=== PATIENT | male | born 1975 | race Caucasian/White ===

== ENCOUNTER → 2019-11-30 15:39 | Outpatient (CLI) | payer OTHER, SELFPAY ==
[2019-11-30 16:42] LABS: Add Manual Diff / Slide Review NO; Basophils Absolute Auto 100 /uL (0-100); Basophils Percent Auto 0.9 % (0-2); Eosinophils Absolute Auto 100 /uL (0-450); Eosinophils Percent Auto 1.6 % (2-4); Hematocrit 41.3 % (41-53); Hemoglobin 14.1 g/dL (13.5-17.5); Lymphocytes Absolute Auto 2200 /uL (1100-4500); Mean Corpuscular HGB Conc 34.2 % (30-36); Mean Corpuscular Hemoglobin 30.7 PG (26-34); Mean Corpuscular Volume 89.9 fL (80-100); Monocytes Absolute Auto 600 /uL (0-900); Monocytes Percent Auto 7.2 % (3-14); Neutrophils Absolute Auto 5100 /uL (1500-7000); Neutrophils Percent Auto 63.3 % (50-75); Platelet Count 308 X10^3/uL (150-400); Red Cell Distribution Width 13.7 % (11.6-14.8)
[2019-11-30 17:11] LABS: Alanine Aminotransferase 25 IU/L (<50); Albumin 4.7 g/dL (3.5-5.0); Albumin Globulin Ratio 1.7 (1.0-2.8); Alkaline Phosphatase 42 U/L (38-126); Aspartate Aminotransferase 28 IU/L (17-59); BUN Creatinine Ratio 21.1 (6-22); Bilirubin Total 0.6 mg/dL (0.2-1.3); Blood Urea Nitrogen 19 mg/dL (9-20); Calcium 10.1 mg/dL (8.4-10.2); Carbon Dioxide 27 mmol/L (22-32); Chloride 104 mmol/L (98-107); Cholesterol 170 mg/dL (140-199); Estimated Glomerular Filt Rate > 60.0 mL/min (>60); Globulin 2.8 g/dL (1.7-4.1); Glucose 79 mg/dL (70-100); HDL Cholesterol 45 mg/dL (40-60); HEMOLYSIS < 15 (0-50); LDL Cholesterol Calculated 95 mg/dL (<100); Potassium 4.3 mmol/L (3.4-5.1); Sodium 141 mmol/L (137-145); Total Protein 7.5 g/dL (6.3-8.2); Triglycerides 150 mg/dL (35-150)
[2019-11-30 18:30] LABS: TSH w/ Reflex to FT4 5.68 uIU/mL (0.47-4.68)
[2019-11-30 19:59] LABS: Free T4, Direct Thyroxine 0.96 ng/dL (0.78-2.19)
== END ==
PROVIDERS: Family Provider Family Medicine; PCP Family Medicine; Referring Provider Family Medicine; Visit Provider Family Medicine
DX: Z13.220 Encounter for screening for lipoid disorders (principal); E78.5 Hyperlipidemia, unspecified
CPT/HCPCS: 36415; 80053; 80061; 84439; 84443; 85025

== ENCOUNTER → 2020-11-19 15:46 | Outpatient (CLI) | payer OTHER, SELFPAY ==
[2020-11-19 17:18] LABS: TSH w/ Reflex to FT4 6.92 uIU/mL (0.47-4.68)
[2020-11-19 17:44] LABS: Free T4, Direct Thyroxine 0.92 ng/dL (0.78-2.19)
== END ==
PROVIDERS: Family Provider Family Medicine; PCP Family Medicine; Referring Provider Family Medicine; Visit Provider Family Medicine
DX: E03.9 Hypothyroidism, unspecified (principal)
CPT/HCPCS: 36415; 84439; 84443

== ENCOUNTER → 2024-01-28 13:43 | Outpatient (CLI) | payer OTHER, SELFPAY ==
[2024-01-28 15:27] LABS: Add Manual Diff / Slide Review NO; Basophils Absolute Auto 100 /uL (0-100); Basophils Percent Auto 1.1 % (0-2); Eosinophils Absolute Auto 100 /uL (0-450); Eosinophils Percent Auto 1.6 % (2-4); Hematocrit 45.4 % (41-53); Lymphocytes Absolute Auto 2200 /uL (1100-4500); Lymphocytes Percent Auto 30.5 % (25-40); Mean Corpuscular Hemoglobin 29.9 PG (26-34); Mean Corpuscular Volume 90.7 fL (80-100); Monocytes Absolute Auto 600 /uL (0-900); Monocytes Percent Auto 9.1 % (3-14); Neutrophils Absolute Auto 4100 /uL (1500-7000); Neutrophils Percent Auto 57.7 % (50-75); Platelet Count 312 X10^3/uL (150-400); Red Blood Cell Count 5.01 X10^6/uL (4.5-5.9); Red Cell Distribution Width 13.2 % (11.6-14.8); White Blood Cell Count 7.1 X10^3/uL (4.5-11.0)
[2024-01-28 19:20] LABS: Alanine Aminotransferase 26 IU/L (<50); Albumin 4.9 g/dL (3.5-5.0); Alkaline Phosphatase 47 U/L (38-126); Aspartate Aminotransferase 29 IU/L (17-59); BUN Creatinine Ratio 21.4 (6-22); Bilirubin Total 0.8 mg/dL (0.2-1.3); Blood Urea Nitrogen 22 mg/dL (9-20); Calcium 10.1 mg/dL (8.4-10.2); Carbon Dioxide 26 mmol/L (22-32); Chloride 106 mmol/L (98-107); Cholesterol 171 mg/dL (140-199); Estimated Glomerular Filt Rate > 60 mL/min (>60); Globulin 2.5 g/dL (1.7-4.1); Glucose 72 mg/dL (70-100); HDL Cholesterol 49 mg/dL (40-60); HEMOLYSIS < 15 (0-50); LDL Cholesterol Calculated 94 mg/dL (<100); Potassium 4.4 mmol/L (3.4-5.1); Sodium 139 mmol/L (137-145); Total Protein 7.4 g/dL (6.3-8.2); Triglycerides 140 mg/dL (35-150)
[2024-01-28 19:47] LABS: Prostate Specific Antigen 1.09 ng/mL (0.10-4.00)
== END ==
PROVIDERS: Family Provider Family Medicine; PCP Family Medicine; Referring Provider Family Medicine; Visit Provider Family Medicine
DX: Z00.00 Encounter for general adult medical examination without abnormal findings (principal); E78.5 Hyperlipidemia, unspecified
CPT/HCPCS: 36415; 80053; 80061; 84153; 85025

== ENCOUNTER 2024-04-26 06:41 | Day surgery (SDC) | payer OTHER, SELFPAY ==
[2024-04-19 07:59] VITALS: BMI 24.2
[2024-04-26] VITALS (7 sets, daily range): BP systolic 120–145; BP diastolic 74–94; PULSE 70–97; RESP 10–17; TEMP 36.1–36.2; O2SAT 93–99; BMI 25.0
[2024-04-26] MEDS: LACTATED RINGERS 1,000 ML 42 ML IV (07:10)
--- NOTE | 2024-04-26 07:35 | SUR.OPER ---
Supine on padded OR bed, head on pillow, pink pad in place, arms padded and tucked at sides, legs uncrossed, safety belt at thigh, tape over blanket over lower legs .
--- NOTE | 2024-04-26 07:42 | PM.HP.1 ---
History of Present Illness History of Present Illness Date Patient Seen: 04/26/24 Time Patient Seen: 07:43 Chief complaint: Right Laparoscopic Inguinal Hernia Repair Narrative: Carlos is a 49-year-old man with a symptomatic right inguinal hernia. See office note from February for details. No changes since then. [facility] Medical History (Updated 03/18/24 @ 18:51 by Marybeth Villanueva) Chicken pox Preventative health care Surgical History (Updated 03/18/24 @ 18:51 by Marybeth Villanueva) Anesthesia Status post appendectomy (~1983) Family History (Updated 03/18/24 @ 18:51 by Marybeth Villanueva) Mother No problems noted. Brother Hypertension Social History marital status: household members: spouse occupational status: employed Smoking Status: Never smoker alcohol intake: never substance use type: does not use Meds Home Medications and Allergies Home Medications Medication Instructions Recorded Confirmed Type No Known Home Medications 04/26/24 04/26/24 History Allergies Allergy/AdvReac Type Severity Reaction Status Date / Time No Known Drug Allergies Allergy Verified 04/26/24 06:50 Exam Vital Signs (past 8 hours): - 04/26/24 06:59 Temperature 97.0 F L Pulse Rate 70 Respiratory Rate 16 Blood Pressure 145/94 H Pulse Oximetry 99 Oxygen Delivery Method Room Air Oxygen Delivery Method Room Air Const General: healthy appearing Other: Reducible right inguinal hernia Assessment & Plan Assessment and plan (1) Right inguinal hernia: Status: None Plan We reviewed the risks and benefits of laparoscopic right inguinal hernia repair with mesh and he would like to proceed. Time-Based Coding :: [TOTAL MINUTES] spent with patient and on the chart (including review of chart, obtaining history, exam, reviewing outside data, placing orders, documenting exam and treatment plan, and counseling patient) on [DATE].
[2024-04-26] MEDS: CEFAZOLIN 2 GM/100 ML PREMIX 100 ML IV (07:55)
[2024-04-26] MEDS: ACETAMINOPHEN IV 1,000 MG/100 ML VIAL 400 MG IV (08:00)
[2024-04-26] MEDS: BUPIVACAINE 0.5% W/ EPI (PF) 30 ML VIAL INJ (08:36)
--- NOTE | 2024-04-26 09:50 | P.OP_ITS ---
Operative Date/Time/Diagnoses Date of procedure: 04/26/24 Time of procedure: 09:50 Pre-op diagnosis: Right inguinal hernia Post-op diagnosis: same Procedure & Clinicians Procedure: Laparoscopic right inguinal hernia repair with mesh Same procedure as scheduled: Yes Surgeon: Mich Landry Senior Strategy Manager: Dexter Ibarra Anesthesia Type: General Operative Notes Procedure in detail: The patient was given preoperative antibiotics. The patient was brought to the operating room, placed on the table in the supine position with the arms tucked and general anesthesia was induced. The abdomen was prepped and draped in the usual fashion. A time-out was performed. A 1 cm supraumbilical incision was created and dissection was carried down to the anterior sheath. The fascia was scored transversely with cautery. The inferior leaf of the fascia was grasped with a Suni clamp to elevate abdominal wall. There was a rather robust posterior sheath that could not be easily pierced with a clamp. We grasped posterior sheath between clamps and divided with Metzenbaum scissors. The Liz port was placed and the abdomen was insufflated to 15 mmHg. The camera was inserted, there was no evidence of any injury from the entry. There was an indirect right inguinal hernia. 5 mm ports were placed under direct vision in the mid left and mid right abdomen. The patient was positioned in steep Trendelenburg. We created right peritoneal flap. The peritoneum was dissected off the right cord structures. The sac was dissected out of the internal ring. A large right Bard mesh was brought in and placed over the defect with the medial edge against Anand's ligament. We then closed the peritoneal flap with a running 3-0 barbed suture. We took one last look around the abdomen and saw no other abnormalities. The suture was removed and accounted for. The 5 mm ports were removed under direct vision. The abdomen was desufflated. The Liz port was removed. Additional local was injected into the fascia and the fascial incision was closed with 2 interrupted 0 Vicryl sutures. The skin incisions were closed with 4 Monocryl, Steri-Strips and Band-Aids. Dexter MURRY provided assistance with exposure, retraction and closure of incisions. EBL: 10 mL Post-operative Condition: stable Disposition: PACU
== END 2024-04-26 10:26 | disposition home or self-care (01) ==
PROVIDERS: Family Provider Family Medicine; PCP Family Medicine; Referring Provider Surgery; Visit Provider Surgery
PROC: 0YQ54ZZ Repair Right Inguinal Region, Percutaneous Endoscopic Approach (ICD-10-PCS; CPT 49650; principal; 2024-04-26 07:45)
DX: K40.90 Unilateral inguinal hernia, without obstruction or gangrene, not specified as recurrent (principal)
CPT/HCPCS: 49650; J0136; J0330; J0690; J1170; J2250; J2405; J2704; J3010; J3490

== ENCOUNTER 2024-06-09 06:45 | Day surgery (SDC) | payer OTHER, SELFPAY ==
--- NOTE | 2024-06-09 | PATH_ITS ---
[facility] Accession Number: [id number] No. of containers..01 Tissue . 01 Material submitted: . colon - SIGMOID POLYP . 01 Diagnosis: SIGMOID POLYP: Tubular adenoma. [facility] 06/14/2024 1549 Local . 01 Electronically signed: . Kole Wagn MD, Pathologist NPI- [id number] . 01 Gross description: . SIGMOID POLYP: Received in formalin is 1 fragment(s) of marlow, soft tissue measuring 1.1 x 0.5 x 0.5 cm submitted entirely in 1 cassette(s) /MARIOLA 06/14/2024 1549 Local . 01 Pathologist provided ICD-10: D12.5 . 01 CPT . 595808 Specimen Comment: A courtesy copy of this report has been sent to [phone] Performed at: [address] [id number] MD Kole Wang MD Phone: [phone]
[2024-06-09 07:22] VITALS: BP 145/93; PULSE 79; RESP 17; TEMP 36.4; O2SAT 99
[2024-06-09] MEDS: LACTATED RINGERS 1,000 ML 42 ML IV (07:26)
--- NOTE | 2024-06-09 07:37 | P.HP_ITS ---
History of Present Illness History of Present Illness Date Patient Seen: 06/09/24 Time Patient Seen: 07:38 Chief complaint: Colonoscopy Narrative: Carlos is a 49-year-old man who is here for his first screening colonoscopy. No family history of colon cancer. [facility] Medical History Chicken pox Preventative health care Surgical History Anesthesia Status post appendectomy (~1983) Family History Mother No problems noted. Brother Hypertension Social History marital status: household members: spouse occupational status: employed Smoking Status: Never smoker alcohol intake: never substance use type: does not use Meds Home Medications and Allergies Allergies Allergy/AdvReac Type Severity Reaction Status Date / Time No Known Drug Allergies Allergy Verified 06/09/24 07:12 Exam Vital Signs (past 8 hours): - 06/09/24 07:22 Temperature 97.5 F L Pulse Rate 79 Respiratory Rate 17 Blood Pressure 145/93 H Pulse Oximetry 99 Oxygen Delivery Method Room Air Oxygen Delivery Method Room Air Const General: healthy appearing Resp Effort & Inspection: normal respiratory effort Assessment & Plan Assessment and plan (1) Colon cancer screening: Status: Acute Plan We reviewed the risks and benefits of colonoscopy for colon cancer screening and he would like to proceed. Time-Based Coding :: [TOTAL MINUTES] spent with patient and on the chart (including review of chart, obtaining history, exam, reviewing outside data, placing orders, documenting exam and treatment plan, and counseling patient) on [DATE].
[2024-06-09 08:02] VITALS: BP 107/74; PULSE 76; RESP 16; TEMP 36.1; O2SAT 96
--- NOTE | 2024-06-09 08:04 | PM.OP.COLON ---
Operative Date/Time/Diagnoses Date of procedure: 06/09/24 Time of procedure: 08:05 Pre-op diagnosis: Colon cancer screening Post-op diagnosis: same Procedure & Clinicians Study performed: Colonoscopy Same procedure as scheduled: Yes Surgeon: Mich Landry Procedure Notes Procedure in detail: Surgeon: Mcih Landry MD Anesthesia: Amy Boudreaux CRNA Procedure: The patient was brought to the endoscopy suite, placed in left lateral decubitus position. The patient was connected to monitoring devices. A time-out was performed. Sedation was administered. Once the patient was adequately sedated, a digital rectal exam was performed and was normal. The scope was then inserted and advanced to the cecum where the appendiceal orifice was identified and photographed. The scope was then slowly withdrawn over greater than 6 minutes. The mucosa was thoroughly inspected. There was a 7 mm polyp in the distal sigmoid colon which was removed with a cold snare. The scope was retroflexed in the rectum. No other abnormalities were seen. The scope was straightened and removed. The patient was awakened and brought to recovery. Scope withdrawal time: 10 minutes Sedation time: 14 minutes EBL: 5 mL Findings: 7 mm sigmoid polyp Post-procedure Disposition: PACU
[2024-06-09 08:07] VITALS: BP 106/72; PULSE 68; RESP 16; O2SAT 96
[2024-06-09 08:12] VITALS: BP 104/70; PULSE 62; RESP 16; O2SAT 96
[2024-06-09 08:18] VITALS: BP 115/77; PULSE 63; RESP 12; TEMP 36.1; O2SAT 99
[2024-06-09 08:21] VITALS: BP 108/73; PULSE 65; RESP 11; O2SAT 99
== END 2024-06-09 08:57 | disposition home or self-care (01) ==
PROVIDERS: Family Provider Family Medicine; PCP Family Medicine; Referring Provider Surgery; Visit Provider Surgery
PROC: 0DJD8ZZ Inspection of Lower Intestinal Tract, Via Natural or Artificial Opening Endoscopic (ICD-10-PCS; CPT 45378; principal; 2024-06-09 07:45)
DX: Z12.11 Encounter for screening for malignant neoplasm of colon (principal); D12.5 Benign neoplasm of sigmoid colon
CPT/HCPCS: 45385; J2704

== ENCOUNTER 2025-05-15 09:50 | Emergency (ER) | payer OTHER, SELFPAY ==
[2025-05-15] VITALS (9 sets, daily range): BP systolic 142–155; BP diastolic 87–116; PULSE 64–74; RESP 16–21; TEMP 37; O2SAT 98–100; BMI 25.0
--- NOTE | 2025-05-15 10:14 | ED_ITS ---
HPI - Fall General Chief Complaint: Fall Stated Complaint: fell, hit ribs wk ago, sneezed today intense pain Time Seen by Provider: 05/15/25 09:59 History of Present Illness HPI Narrative: 50-year-old gentleman fell off top of the top of the ladder approximately 12 ft high on Thursday last week while cleaning a neighbor's gutter and the ladder went [address] he [address] the [address] and he landed on grass. He denies headache, dizziness, chest pain, loss of consciousness, neck pain, abdominal pain, hematuria, bowel or bladder incontinence, gait instability, but does endorse shortness breath and tenderness to palpation in the right ribs which he has taken Tylenol with some relief of symptoms. Today he sneezed and the pain was fairly significant such that he came in to be evaluated. Other than what is stated 14 point review of system is negative. Related Data Allergies Allergy/AdvReac Type Severity Reaction Status Date / Time No Known Drug Allergies Allergy Verified 05/15/25 10:23 Review of Systems Review of Systems ROS Unobtainable: All systems reviewed & are unremarkable except as noted in HPI and below Patient History Medical History Chicken pox Preventative health care Surgical History Anesthesia Status post appendectomy (~1983) Family History Mother No problems noted. Brother Hypertension Social History marital status: household members: spouse occupational status: employed Smoking Status: Never smoker alcohol intake: never substance use type: does not use Exam Narrative Exam Narrative: GENERAL: [50] year old patient appears stated age. Well-developed patient, in mild distress. HEAD: Atraumatic. Normocephalic. EYES: Pupils equal round and reactive. Extraocular motions intact. No scleral icterus. No injection or drainage. ENT: Nose without bleeding, purulent drainage. Throat without erythema, tonsillar hypertrophy or exudate. Airway patent. NECK: Trachea midline. Non tender CARDIOVASCULAR: Regular rate and rhythm without murmurs, gallops, or rubs. RESPIRATORY: Clear to auscultation. Breath sounds equal bilaterally. No wheezes, rales, or rhonchi. GASTROINTESTINAL: Abdomen soft, non-tender, nondistended. EXTREMITIES: No edema or joint tenderness. BACK: Nontender without deformity or crepitance. No flank tenderness. NEURO: AOx3. SKIN: No rash or erythema of visible areas Initial Vital Signs Initial Vital Signs: Vital Signs Temperature 98.6 F 05/15/25 10:23 Pulse Rate 69 05/15/25 10:23 Respiratory Rate 16 05/15/25 10:23 Blood Pressure 155/87 H 05/15/25 10:23 Pulse Oximetry 98 05/15/25 10:23 Oxygen Delivery Method Room Air 05/15/25 10:23 Course Orders Ordered: ED Orders 05/15/25 10:22 CT Trauma Chest Abdomen Pelvis Stat 05/15/25 10:35 CBC Auto Diff [Complete Blood Count AUTO DIFF] Stat CMP [Comprehensive Metabolic Panel] Stat PT [Prothrombin Time INR] Stat Discontinued Medications Hydrocodone Bitart/Acetaminophen (Hydrocodone/Acet 5/325 Tablet) 1 tab PO NOW ONE Stop: 05/15/25 10:24 Last Admin: 05/15/25 10:37 Dose: Not Given Documented By: RAYO Lactated Ringer's (Lactated Ringers) 1,000 mls @ 1,000 mls/hr IV BOLUS ONE Stop: 05/15/25 11:22 Last Admin: 05/15/25 10:38 Dose: Not Given Documented By: RAYO Ketorolac Tromethamine (Ketorolac 30 Mg/Ml Vial) 15 mg IV NOW ONE Stop: 05/15/25 10:24 Last Admin: 05/15/25 10:38 Dose: Not Given Documented By: RAYO Vital Signs Vital signs: Vital Signs - 8 hr 05/15/25 10:23 Temperature 98.6 F Pulse Rate 69 Respiratory Rate 16 Blood Pressure 155/87 H Pulse Oximetry 98 Oxygen Delivery Method Room Air MDM - Fall Lab Data 05/15/25 10:35 05/15/25 10:35 Labs: Lab Results 05/15/25 Range/Units 10:35 WBC 9.6 (4.5-11.0) X10^3/uL RBC 4.76 (4.5-5.9) X10^6/uL Hgb 14.6 (13.5-17.5) g/dL Hct 42.9 (41-53) % MCV 90.2 (80-100) fL MCH 30.6 (26-34) PG MCHC 33.9 (30-36) % RDW 13.4 (11.6-14.8) % Plt Count 308 (150-400) X10^3/uL Neut % (Auto) 79.5 H (50-75) % Lymph % (Auto) 12.4 L (25-40) % [place] % (Auto) 6.2 (3-14) % Eos % (Auto) 1.1 L (2-4) % Baso % (Auto) 0.8 (0-2) % Neut # (Auto) 7600 H (8863-1410) /uL Lymph # (Auto) 1200 (1389-6637) /uL [place] # (Auto) 600 (0-900) /uL Eos # (Auto) 100 (0-450) /uL Baso # (Auto) 100 (0-100) /uL PT 11.6 (9.4-12.5) SECONDS INR 1.0 (0.9-1.3) Sodium 139 (137-145) mmol/L Potassium 4.7 (3.4-5.1) mmol/L Chloride 106 (98-107) mmol/L Carbon Dioxide 25 (22-32) mmol/L BUN 23 H (9-20) mg/dL Creatinine 0.96 (0.66-1.25) mg/dL Estimated GFR > 60 (>60) mL/min BUN/Creatinine Ratio 24.0 H (6-22) Glucose 100 H (70-99) mg/dL Calcium 9.4 (8.4-10.2) mg/dL Total Bilirubin 0.8 (0.2-1.3) mg/dL AST 55 (17-59) IU/L ALT 28 (<50) IU/L Alkaline Phosphatase 54 (38-126) U/L Total Protein 7.6 (6.3-8.2) g/dL Albumin 4.8 (3.5-5.0) g/dL Globulin 2.8 (1.7-4.1) g/dL Albumin/Globulin Ratio 1.7 (1.0-2.8) Imaging Data CT scan - chest: Radiologist's Impression: [address] [address] [address] Scan Report Signed Patient: Carlos Randall MR#: [id number] : 1975 Acct:[id number] Age/Sex: 50 / M Date of Service: 05/15/25 Loc: ED Accession Number: [id number] Procedure: CT Trauma Chest Abdomen Pelvis Ordering Provider: Romero Abel D.O. PROCEDURE: CT TRAUMA CHEST ABDOMEN PELVIS INDICATIONS: fall 1 week ago/rib pain TECHNIQUE: After the administration of intravenous contrast, 5 mm thick sections acquired from the lung apices to the symphysis. 2.5 mm thick coronal and sagittal reformats were acquired. Additional 7 mm thick coronal maximum intensity projection (MIP) reformats acquired through the lungs. Optional 10-minute delayed imaging may be performed from the kidneys to the bladder. For radiation dose reduction, the following was used: automated exposure control, adjustment of mA and/or kV according to patient size. COMPARISON: None. FINDINGS: Image quality: Diagnostic. CHEST: Lower Neck: No enlarged lymph nodes. Thyroid: No thyroid nodules which require sonographic evaluation. Axillae: No enlarged lymph nodes. Chest Wall: No subcutaneous gas. Lungs and Pleura: No pulmonary contusions or lacerations. No acute airspace opacities. No pneumothorax or hemothorax. 4 millimeter solid nodule, medial right upper lobe (series 5, image 95). Mediastinum: No mediastinal hematomas. Heart size is normal. No pericardial effusion. Thoracic aorta and pulmonary arteries demonstrate normal size and enhancement. No mediastinal or hilar adenopathy. Esophagus is normal in caliber. No hiatal hernia. ABDOMEN: Liver: No lacerations. Gallbladder: No radiopaque gallstones or wall thickening. Biliary ducts: No biliary dilation. Pancreas: Homogenous enhancement. Spleen: Homogenous enhancement without laceration or hematoma. Adrenal Glands: Symmetric enhancement. Kidneys and Ureters: Symmetric enhancement. No hydronephrosis. No solid mass. No complex renal cystic lesion which requires follow up. Stomach and Bowel: Normal colonic caliber, without significant wall thickening. Peritoneum: No abnormal intraperitoneal fluid. No free air. Ventral Wall: No hernia. Abdominal Nodes: No retroperitoneal or mesenteric adenopathy by size criteria. Vessels: Aorta and inferior vena cava are normal in size. PELVIS: Pelvic Organs: Unremarkable. Bladder: Normal thickness. Pelvic Nodes: No enlarged lymph nodes. Miscellaneous: No inguinal hernias are seen. Bones: Pelvic ring and hip joints appear intact. No displaced rib fractures. IMPRESSION: No evidence of traumatic injury to the chest, abdomen or pelvis. 4 millimeter solid nodule in the right upper lobe. Consider 12 month follow-up if at high risk for developing lung cancer, per Fleischner Society guidelines. MDM Narrative Medical decision making narrative: All lab wor1k, vital signs, nurse triage note, medication list, previous ER visits, and all imaging studies reviewed. CTA abdomen and pelvis showed no evidence of traumatic injury to the chest abdomen and pelvis. 4 mm solid nodule in the right upper lung fall a 12 month follow up. Differential diagnosis includes rib fracture pneumothorax liver laceration splenic injury. Patient was offered pain medicine but refused. Follow up with PCP regarding right upper lobe nodule. Discharge Plan Departure Patient Disposition: Home Clinical Impression: Fall Qualifiers: Encounter type: initial encounter Qualified Code(s): W19.XXXA - Unspecified fall, initial encounter Contusion of rib Qualifiers: Encounter type: initial encounter Qualified Code(s): S29.8XXA - Other specified injuries of thorax, initial encounter Activity Restrictions/Additional Instructions: Return with new or worsening symptoms. Fall PCP regarding right upper lobe nodule 4 mm for 12 month follow up. Take Tylenol and/or ibuprofen for pain control. Referrals: Augusto Padilla DO [Primary Care Provider, Family Practice] Stand Alone Forms: Patient Portal/API
--- NOTE | 2025-05-15 10:22 | DI.CT.S_ITS ---
PROCEDURE: CT TRAUMA CHEST ABDOMEN PELVIS INDICATIONS: fall 1 week ago/rib pain TECHNIQUE: After the administration of intravenous contrast, 5 mm thick sections acquired from the lung apices to the symphysis. 2.5 mm thick coronal and sagittal reformats were acquired. Additional 7 mm thick coronal maximum intensity projection (MIP) reformats acquired through the lungs. Optional 10-minute delayed imaging may be performed from the kidneys to the bladder. For radiation dose reduction, the following was used: automated exposure control, adjustment of mA and/or kV according to patient size. COMPARISON: None. FINDINGS: Image quality: Diagnostic. CHEST: Lower Neck: No enlarged lymph nodes. Thyroid: No thyroid nodules which require sonographic evaluation. Axillae: No enlarged lymph nodes. Chest Wall: No subcutaneous gas. Lungs and Pleura: No pulmonary contusions or lacerations. No acute airspace opacities. No pneumothorax or hemothorax. 4 millimeter solid nodule, medial right upper lobe (series 5, image 95). Mediastinum: No mediastinal hematomas. Heart size is normal. No pericardial effusion. Thoracic aorta and pulmonary arteries demonstrate normal size and enhancement. No mediastinal or hilar adenopathy. Esophagus is normal in caliber. No hiatal hernia. ABDOMEN: Liver: No lacerations. Gallbladder: No radiopaque gallstones or wall thickening. Biliary ducts: No biliary dilation. Pancreas: Homogenous enhancement. Spleen: Homogenous enhancement without laceration or hematoma. Adrenal Glands: Symmetric enhancement. Kidneys and Ureters: Symmetric enhancement. No hydronephrosis. No solid mass. No complex renal cystic lesion which requires follow up. Stomach and Bowel: Normal colonic caliber, without significant wall thickening. Peritoneum: No abnormal intraperitoneal fluid. No free air. Ventral Wall: No hernia. Abdominal Nodes: No retroperitoneal or mesenteric adenopathy by size criteria. Vessels: Aorta and inferior vena cava are normal in size. PELVIS: Pelvic Organs: Unremarkable. Bladder: Normal thickness. Pelvic Nodes: No enlarged lymph nodes. Miscellaneous: No inguinal hernias are seen. Bones: Pelvic ring and hip joints appear intact. No displaced rib fractures. IMPRESSION: No evidence of traumatic injury to the chest, abdomen or pelvis. 4 millimeter solid nodule in the right upper lobe. Consider 12 month follow-up if at high risk for developing lung cancer, per Fleischner Society guidelines. Dictated by: Raleigh Tinsley M.D. on 05/15/2025 at 11:00 Approved by: Raleigh Tinsley M.D. on 05/15/2025 at 11:03
--- NOTE | 2025-05-15 10:31 | PC.NURSE ---
Modified trauma called by this RN at 10:29am.
--- NOTE | 2025-05-15 10:39 | PC.NURSE ---
Pt declined all meds and fluids. Charge/PrimaryRN and Physician aware. Hydrocodone wasted with CEE SHIPMAN.
[2025-05-15 10:43] LABS: Add Manual Diff / Slide Review NO; Hematocrit 42.9 % (41-53); Hemoglobin 14.6 g/dL (13.5-17.5); Lymphocytes Absolute Auto 1200 /uL (1100-4500); Mean Corpuscular HGB Conc 33.9 % (30-36); Mean Corpuscular Hemoglobin 30.6 PG (26-34); Mean Corpuscular Volume 90.2 fL (80-100); Platelet Count 308 X10^3/uL (150-400)
[2025-05-15 10:46] LABS: INR 1.0 (0.9-1.3); Prothrombin Time 11.6 SECONDS (9.4-12.5)
[2025-05-15 10:50] LABS: Alanine Aminotransferase 28 IU/L (<50); Albumin 4.8 g/dL (3.5-5.0); Albumin Globulin Ratio 1.7 (1.0-2.8); Alkaline Phosphatase 54 U/L (38-126); Blood Urea Nitrogen 23 mg/dL (9-20); Calcium 9.4 mg/dL (8.4-10.2); Carbon Dioxide 25 mmol/L (22-32); Chloride 106 mmol/L (98-107); Estimated Glomerular Filt Rate > 60 mL/min (>60); Globulin 2.8 g/dL (1.7-4.1); Glucose 100 mg/dL (70-99); HEMOLYSIS 16 (0-50); Potassium 4.7 mmol/L (3.4-5.1); Sodium 139 mmol/L (137-145); Total Protein 7.6 g/dL (6.3-8.2)
--- NOTE | 2025-05-15 11:00 | PC.NURSE ---
Pt arrives to ER ambulatory, speaking in full sentences. Reports right rib pain.
== END 2025-05-15 12:12 | disposition home or self-care (01) ==
PROVIDERS: Emergency Provider Family Medicine; Family Provider Family Medicine; PCP Family Medicine
DX: S29.8XXA Other specified injuries of thorax, initial encounter (principal); W11.XXXA Fall on and from ladder, initial encounter
CPT/HCPCS: 36415; 71275; 74177; 80053; 85025; 85610; 99284; Q9967